=== PATIENT | female | born 1955 | race Caucasian/White ===

== ENCOUNTER 2017-07-16 09:22 | Outpatient (CLI) | payer BC, OTHER ==
[2017-07-16 10:36] LABS: Cardiac Risk 3.2 (Less than 4.5)
[2017-07-16 12:04] LABS: #Basophils 0.1 thou/uL (0.0-0.2); #Eosinphils 0.2 thou/uL (0.0-0.7); #Lymphocytes 2.5 thou/uL (1.20-3.40); #Monocytes 0.5 thou/uL (0.11-0.59); #Neutrophils 3.3 thou/uL (1.40-6.50); %Eosinophils 2.7 % (0.0-10.0); %Lymphocytes 40.4 % (21.0-51.0); %Monocytes 5.3 % (0.0-10.0); %Neutrophils 50.6 % (42.0-75.0); Hemoglobin 14.4 g/dL (12.0-16.0); Mean Corpuscular HGB CONC 36.7 g/dL (32.0-36.0); Mean Corpuscular Hemoglobin 34.7 pg (27.0-31.0); Mean Corpuscular Volume 94.6 fl (81.0-99.0); Mean Platelet Volume 6.9 fL (7.4-10.4); PLT Morphology Comment Appears Adequate; Platelet Count 271 thou/uL (130-400); RBC Distribution Width 11.1 % (11.5-14.5); RBC Morphology Normal; Red Blood Cell (RBC) Count 4.18 mill/uL (4.20-5.40); White Blood Cell (WBC) Count 6.3 thou/uL (4.8-10.8)
== END 2017-07-16 09:23 | disposition home or self-care (01) ==
LOC: HPCALD 09:22
PROVIDERS: ATTEND Physician Assistant
DX: E78.5 Hyperlipidemia, unspecified (principal); I10 Essential (primary) hypertension
CPT/HCPCS: 36415; 80061; 85025

== ENCOUNTER 2022-04-04 15:18 | Outpatient (CLI) | payer MEDICARE | END 2022-04-04 15:19 | disposition home or self-care (01) | LOC: BURRAD 15:18 | PROVIDERS: ATTEND Physician Assistant | DX: R93.7 Abnormal findings on diagnostic imaging of other parts of musculoskeletal system (principal) | CPT/HCPCS: 72120 ==

== ENCOUNTER 2022-05-27 16:13 | Outpatient (CLI) | payer MEDICARE | END 2022-05-27 16:14 | disposition home or self-care (01) | LOC: BURRAD 16:13 | PROVIDERS: ATTEND Physician Assistant | DX: M25.552 Pain in left hip (principal); M16.12 Unilateral primary osteoarthritis, left hip ==

== ENCOUNTER 2023-05-15 12:53 | Outpatient (CLI) | payer MEDICARE | END 2023-05-15 12:54 | disposition home or self-care (01) | LOC: BUREKG 12:53 | PROVIDERS: ATTEND Physician Assistant | DX: Z01.818 Encounter for other preprocedural examination (principal) | CPT/HCPCS: 93005; 93010 ==

== ENCOUNTER 2025-10-10 13:09 | Emergency (ER) | payer MEDICARE ==
[2025-10-10] MEDS ORDERED: Lidocaine 1%/Epinephrine 1:100K 10 ML VIAL ONE (13:40)
== END 2025-10-10 15:35 | disposition home or self-care (01) ==
LOC: BURERS 13:09
DX: S05.41XA Penetrating wound of orbit with or without foreign body, right eye, initial encounter (principal); S80.12XA Contusion of left lower leg, initial encounter; S80.11XA Contusion of right lower leg, initial encounter; S50.811A Abrasion of right forearm, initial encounter; I10 Essential (primary) hypertension; E78.5 Hyperlipidemia, unspecified; F17.290 Nicotine dependence, other tobacco product, uncomplicated; Z79.82 Long term (current) use of aspirin; W01.10XA Fall on same level from slipping, tripping and stumbling with subsequent striking against unspecified object, initial encounter
CPT/HCPCS: 12011; 99282

== ENCOUNTER 2025-10-17 11:59 | Emergency (ER) | payer MEDICARE | END 2025-10-17 12:29 | disposition home or self-care (01) | LOC: BURERS 11:59 | DX: S01.111D Laceration without foreign body of right eyelid and periocular area, subsequent encounter (principal); I10 Essential (primary) hypertension; F17.290 Nicotine dependence, other tobacco product, uncomplicated; W19.XXXD Unspecified fall, subsequent encounter; Y92.009 Unspecified place in unspecified non-institutional (private) residence as the place of occurrence of the external cause ==